=== PATIENT | female | born 1980 | race African-American/Black ===

== ENCOUNTER 2018-02-14 09:11 | Day surgery (SDC) | payer OTHER ==
[2018-02-14] MEDS: BUPIVACAINE 0.25% (MPF) 30 ML INJ INJ
[2018-02-14] MEDS ORDERED: CEFAZOLIN 2 GM/50 ML (PMX) 50 ML IVPB (10:00)
[2018-02-14] MEDS: SOD CHLORIDE 0.9% 1,000 ML IV (10:11)
[2018-02-14 10:32] LABS: ADD MAN DIFF? NO
[2018-02-14 10:35] LABS: WHITE BLOOD COUNT 5.8 10^3/ul (4.8-10.8)
[2018-02-14 10:35] LABS: BASOPHIL # 0.1 10^3/ul (0.0-0.1); BASOPHILS % 0.9 % (0.0-2.0); EOSINOPHILS # 0.2 10^3/ul (0.0-0.5); EOSINOPHILS % 3.3 % (0.0-7.0); HEMOGLOBIN 12.5 g/dl (12.0-16.0); IMMATURE GRANS #M 0.02 10^3/ul; IMMATURE GRANS % (M) 0.3 %; LYMPHOCYTES # 1.9 10^3/ul (0.8-2.9); LYMPHOCYTES % 32.9 % (15.0-51.0); MEAN CORPUSCULAR HEMOGLOBIN 25.3 pg (29.0-33.0); MEAN CORPUSCULAR HGB CONC 32.1 g/dl (32.0-37.0); MEAN CORPUSCULAR VOLUME 78.9 fl (82.0-101.0); MEAN PLATELET VOLUME 9.2 fl (7.4-10.4); MONOCYTE # 0.6 10^3/ul (0.3-0.9); MONOCYTES % 9.4 % (0.0-11.0); NEUTROPHIL # 3.1 10^3/ul (1.6-7.5); NEUTROPHILS % 53.2 % (39.0-77.0); PLATELET COUNT 395 10^3/UL (140-415); RED BLOOD COUNT 4.94 10^6/ul (4.20-5.40); RED CELL DISTRIBUTION WIDTH 20.6 % (11.5-14.5)
[2018-02-14 10:57] LABS: ALANINE AMINOTRANSFERASE 22 IU/L (13-69); ALBUMIN 4.3 g/dl (3.3-4.9); ALBUMIN/GLOBULIN RATIO 1.07; ALKALINE PHOSPHATASE 71 IU/L (42-121); ANION GAP 15 (8-16); ASPARTATE AMINO TRANSFERASE 30 IU/L (15-46); BILIRUBIN,INDIRECT 0.3 mg/dl (0-1.1); BILIRUBIN,TOTAL 0.3 mg/dl (0.2-1.3); BLOOD UREA NITROGEN 10 mg/dl (7-20); CALCIUM 9.2 mg/dl (8.4-10.2); CARBON DIOXIDE 26 mmol/L (21-31); CHLORIDE 103 mmol/L (97-110); CREATININE 0.93 mg/dl (0.44-1.00); GLUCOSE 91 mg/dl (70-220); POTASSIUM 3.8 mmol/L (3.5-5.1); SODIUM 140 mmol/L (135-144); TOTAL PROTEIN 8.3 g/dl (6.1-8.1)
[2018-02-14 11:38] LABS: INR 0.91; PROTIME 12.3 Sec (11.9-14.9)
[2018-02-14 11:39] LABS: PARTIAL THROMBOPLASTIN TIME 25.1 Sec (25.0-35.0)
[2018-02-14] MEDS ORDERED: PROPOFOL 20 ML ×2 (12:08→12:36)
[2018-02-14] MEDS ORDERED: FENTAnyl 50 MCG/ML VIAL (12:09)
[2018-02-14] MEDS ORDERED: MIDAZOLAM 1 MG/ML 2 ML INJ (12:09)
[2018-02-14] MEDS: LIDOCAINE 2% (MDV) 20 ML INJ (12:21)
[2018-02-14] MEDS: BUPIVACAINE 0.5% (SDV) 30 ML INJ (12:21)
[2018-02-14] MEDS ORDERED: CEFAZOLIN 1 GM INJ (12:34)
[2018-02-14] MEDS ORDERED: ONDANSETRON 4 MG INJ (12:34)
[2018-02-14] MEDS ORDERED: METOCLOPRAMIDE 10 MG INJ (12:34)
[2018-02-14] MEDS ORDERED: KETOROLAC 30 MG INJ (12:35)
[2018-02-14] MEDS ORDERED: OXYCODONE/ACETAMINOPHEN (5/325) TAB PO (13:00)
[2018-02-14] MEDS ORDERED: HYDROmorphONE 1 MG/5 ML IV SYRINGE IV (13:00)
[2018-02-14] MEDS ORDERED: IBUPROFEN 800 MG TAB PO (13:00)
[2018-02-14] MEDS ORDERED: ONDANSETRON 4 MG INJ IV (13:00)
[2018-02-14] MEDS: HYDROmorphONE 1 MG/5 ML IV SYRINGE IV ×2 (13:20→13:28)
[2018-02-14] MEDS: OXYCODONE/ACETAMINOPHEN (5/325) TAB PO (14:07)
== END 2018-02-14 14:23 | disposition home or self-care (01) ==
LOC: SDS 09:11
DX: M67.432 Ganglion, left wrist (principal); I10 Essential (primary) hypertension
CPT/HCPCS: 25111; 80053; 84703; 85025; 85610; 85730; 88304